=== PATIENT | female | born 1995 | race Caucasian/White ===

== ENCOUNTER 2018-06-13 19:48 | Inpatient (IN) ==
[2018-06-13] MEDS ORDERED: TYLENOL PO ONE (20:10)
[2018-06-13] MEDS ORDERED: MOTRIN PO ONE (20:10)
[2018-06-13 20:16] LABS: BASO# 0.03 X1000 (0.0-0.2); BASO% 0.4 % (0.0-0.8); EOS# 0.14 X1000 (0.0-0.7); EOS% 1.7 % (0.0-10.0); HEMATOCRIT 38.4 % (37.0-47.0); HEMOGLOBIN 13.3 g/dL (12.0-16.0); IMM GRAN# 0.02 X1000 (0.0-0.04); IMM GRAN% 0.2 % (0.0-0.5); LYMPH# 0.44 X1000 (1.2-3.4); LYMPH% 5.3 % (20.5-51.1); MCH 30.4 PG (27-31); MCHC 34.6 g/dL (33-37); MCV 87.9 FL (81-99); MONO# 0.45 X1000 (0.11-0.59); MONO% 5.4 % (1.7-9.3); MPV 11.4 FL (7.4-10.4); NEUT# 7.23 X1000 (1.4-6.5); PLT 199 X1000 (130-400); RBC 4.37 XMIL (4.2-5.4); RDW 12.8 % (11.5-14.5); WBC 8.31 X1000 (4.8-10.8)
[2018-06-13 20:35] LABS: BILIRUBIN URINE NEGATIVE (NEGATIVE); BLOOD URINE NEGATIVE (NEGATIVE); CLARITY SL. CLOUDY (CLEAR); COLOR YELLOW; GLUCOSE URINE NEGATIVE (NEGATIVE); INR 1.12; KETONE URINE TRACE mg/dL (NEGATIVE); LEUKOCYTES URINE TRACE (NEGATIVE); NITRITE URINE POSITIVE (NEGATIVE); PROTEIN URINE TRACE mg/dL (NEGATIVE); UROBILINOGEN URINE NORMAL
[2018-06-13 20:36] LABS: PTT 28.6 Seconds (22.3-41.8)
[2018-06-13 20:42] LABS: URINE EPITHELIAL CELLS >10 /HPF (<10)
[2018-06-13 20:43] LABS: URINE BACTERIA 4+ /HFP; URINE CAST NONE SEEN /LPF; URINE CRYSTAL NONE SEEN /HPF; URINE SOURCE CLEAN CATCH; URINE WBC <10 /HPF (<10); URINE YEAST NONE SEEN /HPF
[2018-06-13 20:44] LABS: INFLUENZA A NEGATIVE (NEGATIVE); INFLUENZA B NEGATIVE (NEGATIVE)
[2018-06-13 20:46] LABS: AGAP 16; ALBUMIN 4.7 g/dL (3.5-5.0); ALKALINE PHOSPHATASE 56 U/L (32-104); BUN 8 mg/dL (8-22); CALCIUM 8.8 mg/dL (8.8-10.2); CHLORIDE 100 mmol/L (98-107); CK PROFILE 71 U/L (24-173); COSMO 272; CREATININE 0.7 mg/dL (0.5-0.9); ESTIMATED GFR > 60; GLUCOSE 92 mg/dL (70-104); GOT 12 U/L (10-30); GPT 7 U/L (10-36); POTASSIUM 3.7 mmol/L (3.5-5.1); SODIUM 137 mmol/L (136-145); TCO2 21 mmol/L (25-35)
--- NOTE | 2018-06-13 20:46 | Diag Imaging Result Doc PS360 ---
CHEST-1 VIEW - 06/13/2018 INDICATION: sepsis protocol COMPARISON: 03/17/2018 FINDINGS: The lungs are normally expanded and clear. Heart size and mediastinal contours are normal. No pneumothorax or pleural effusion. IMPRESSION: Negative exam. Electronically signed by Washington Freire 06/13/2018 8:44 PM
[2018-06-13 20:49] LABS: LYMPHS 4 % (21-51); MONO 5 % (1-9); SEGS 91 % (42-75)
[2018-06-13] MEDS ORDERED: ROCEPHIN 2 GM in NS 50 ML IV ONE (20:51)
[2018-06-13] MEDS ORDERED: XYLOCAINE-MPF 1% ONE (20:53)
[2018-06-13] MEDS ORDERED: XYLOCAINE 1% INJ ONE (20:54)
[2018-06-13] MEDS ORDERED: VANCOMYCIN IV PER PHARMACY MISC SCH (21:00)
[2018-06-13] MEDS ORDERED: MORPHINE IV ONE (21:07)
[2018-06-13] MEDS ORDERED: MORPHINE ONE (21:07)
[2018-06-13] MEDS ORDERED: ROCEPHIN ONE (21:28)
[2018-06-13] MEDS ORDERED: NS 100 ML ONE (21:30)
[2018-06-13] MEDS ORDERED: XYLOCAINE-MPF 1% INJ ONE (21:46)
--- NOTE | 2018-06-13 22:08 | PROVIDER DOCUMENTATION ---
This chart was entered by Umm Erwin Scribe, acting as scribe for Gregor Mcgarry MD. HPI-General Adult - General Chief Complaint: Flu Symptoms Stated Complaint: Flu Time Seen by Provider: 06/13/18 20:04 Source: patient Allergies/Adverse Reactions: Patient Allergies Allergy/AdvReac Type Severity Reaction Status Date / Time No Known Allergies Allergy Verified 06/13/18 19:52 Home Medications: Home Medication List Medication Instructions Recorded Confirmed Last Taken Type Metoclopramide [Reglan] 10 mg PO Q6HR PRN #20 tab 05/26/18 Unknown Rx Pnv No.121/Iron/Folic Acid 1 tab PO DAILY 05/26/18 05/26/18 Unknown History [ Multivitamin Tablet] - History of Present Illness -Gen Adult Nature of Presenting Problems: Patient is a 22 year old female who presents to the ED via EMS with multiple complaints. Patient states symptoms of fever, headache, RLQ abdominal pain, cough, neck pain and back pain. Patient states symptoms started yesterday. Patient denies nausea or vomiting. Location of Pain/Injury: reports: neck, abdomen (RLQ), back Pain Radiation: reports: no radiation Quality of Pain: reports: aching Severity: reports: moderate Onset/Duration: reports: 24 hours ago Timing: reports: still present Context/Activities at Onset: reports: light activity Modifying Factors: improves with: nothing Associated Symptoms: reports: cough, fever/chills (fever), headaches Similar Symptoms Previously?: Yes Recently seen or treated by another doctor?: No Review of Systems - Adult - REVIEW OF SYSTEMS - ADULT Constitutional: reports: fever. denies: chills, fatique Eyes: reports: no symptoms reported Ears, Nose, Mouth & Throat: reports: no symptoms reported Cardiovascular: reports: no symptoms reported Respiratory: reports: cough. denies: shortness of breath, wheezing Gastrointestinal: reports: abdominal pain (RLQ). denies: diarrhea, nausea, vomiting Genitourinary: reports: no symptoms reported Musculoskeletal: reports: back pain, neck pain. denies: muscle aches Integumentary: reports: no symptoms reported Neurological: reports: headache/migraines (CARTER). denies: dizziness/vertigo, numbness, seizure, syncope Psychiatric: reports: no symptoms reported Endocrine: reports: no symptoms reported Hematologic/Lymphatic: reports: no symptoms reported Allergic/Immunologic: reports: no symptoms reported All Other Systems: Reviewed and Negative Past History - Adult - PAST MEDICAL HISTORY-ADULT Review of Records: reports: Nursing Assessment Review, Medications Reviewed, Social history reviewed & non-contributory. Major Childhood Illnesses: reports: denies history Cardiovascular: reports: denies history Respiratory: reports: denies history Gastrointestinal: reports: denies history Obstetrical/Gynecological: reports: denies history Genitourinary: reports: denies history Musculoskeletal: reports: denies history Neurological: reports: denies history Psychiatric: reports: denies history Endocrine/Immune: reports: denies history Other Conditions: reports: denies history - PRIOR SURGERIES/PROCEDURES Surgical/Procedure History: reports: , other (DNC 2012; wisdom teeth) - IMMUNIZATION STATUS Childhood Immunizations: See Nurse Assessment Flu Vaccine: See Nurse Assessment - FAMILY HISTORY Family History: reviewed, not pertinent - SOCIAL HISTORY Smoking: denies Substance Use: marijuana Living Situation: family Physical Exam-General - PHYSICAL EXAM-ADULT Initial Vital Signs Reviewed: Yes - CONSTITUTIONAL General Appearance: alert, mild distress, anxious - NECK Neck: non-tender, normal inspection - RESPIRATORY Respiratory: chest non-tender, lungs clear, normal breath sounds - CARDIOVASCULAR Cardiovascular: normal peripheral pulses, tachycardia - GASTROINTESTINAL (ABDOMEN) Abdominal Exam: normal bowel sounds, soft, tenderness (NEGATIVE CVA TENDERNESS) - MUSCULOSKELETAL Back Exam: no CVA tenderness. negative: CVA tenderness - SKIN Integumentary: normal color, normal turgor, warm/dry - NEUROLOGIC Neurologic: grossly normal, other (positive Kernig sign. negative Brudzinski sign.) - PSYCHIATRIC Psych/Mental Status: anxious Progress - PLAN OF CARE/RESULTS Progress/Plan/Lab Results: Vital Signs - 8 hr 06/13/18 19:48 Temperature 103.0 F H Pulse Rate 116 H Respiratory Rate 22 Blood Pressure 113/81 O2 Sat by Pulse Oximetry 98 Orders Category Date Time Status Cardiac Monitoring DIRECTED Care 06/13/18 19:53 Active IV Insertion ORDERED Care 06/13/18 19:53 Completed Notify MD of + Sepsis Screen NOW Care 06/13/18 19:53 Active Notify Physician As Ordered Care 06/13/18 19:53 Active CHEST-1 VIEW [RAD] Stat Exams 06/13/18 19:53 Ordered BLOOD CULTURE [BLDCUL] Stat Lab 06/13/18 19:53 Uncollected CBC WITH DIFF [HEME] Stat Lab 06/13/18 19:53 Uncollected CK PROFILE [SP CHEM] Stat Lab 06/13/18 19:53 Uncollected COMPREHENSIVE METABOLIC PANEL [CHEM] Stat Lab 06/13/18 19:[address] Stat Lab 06/13/18 19:47 Ordered LACTATE, PLASMA [CHEM] Lab 06/13/18 20:00 Uncollected LACTATE, PLASMA [CHEM] Lab 06/13/18 23:00 Uncollected LACTATE, PLASMA [CHEM] Lab 06/14/18 02:00 Uncollected PROTIME WITH INR [COAG] Stat Lab 06/13/18 19:53 Uncollected PTT [COAG] Stat Lab 06/13/18 19:53 Uncollected TROPONIN T Stat Lab 06/13/18 19:[address] W/POSS RFLX CULT [URINALYSIS] Stat Lab 06/13/18 19:53 Uncollected Oxygen Device Stat Oth 06/13/18 19:53 Active 2033 - Patient's family requested to talk to Dr. Mcgarry. Patient's mother wanted to know the risk and benefits of a LP. Dr. Mcgarry explained the risks and benefits to having a LP. Patient asked Dr. Mcgarry if he had killed someone and Dr. Mcgarry replied no. Patient's mother asked if Dr. Mcgarry has had someone while doing a LP and Dr. Mcgarry replied no. Patient states she will do the procedure. 2039 - Patient's mother came to the nurses desk asking to speak to the other fabi crowell. 2042 - Dr. Black consulted with family. Result Diagrams: 06/13/18 19:58 06/13/18 19:58 - REASSESSMENT Reassessment #1 Time Reassessed: 20:31 Status: other (DURING INITIAL EVALUATION, PATIENT WITH SEVERE HEADACHE,) Reassessment #2 Time Reassessed: 21:38 Status: other (LUMBAR PUNCTURE UNSUCCESSFUL; I HAVE SPOKE TO HOSPITALIST HERE WHO WILL TALK TO [facility] AT [facility]; PENDING CALL BACK. I AM STARTING PATIENT EMPERICALLY ON CEFTRIAXONE AND VANCOMYCIN.) Reassessment #3 Time Reassessed: 22:00 Status: other (HOSPITALIST CALLED BACK.; WILL ADMIT HER HERE. HOSPITALIST WOULD LIKE TO START ACYCLOVIR; WHICH I IWILL START. WILL ALSO GET CT HEAD.) - XRAY 1 XRAY Study: Chest Impression: See EMR Report ( CHEST-1 VIEW - 06/13/2018 INDICATION: sepsis protocol COMPARISON: 03/17/2018 FINDINGS: The lungs are normally expanded and clear. Heart size and mediastinal contours are normal. No pneumothorax or pleural effusion. IMPRESSION: Negative exam. Electronically signed by Washington Freire 06/13/2018 8:44 PM 06/13/182043 Interpreting Physician: Washington Freire MD Dictated Date/Time: 06/13/182042 cc: Gregor Mcgarry MD;) Procedures - LUMBAR PUNCTURE Procedure, Risk, Benefits and Alternatives discussed with:: Patient, Parent, Family Members Consent Form Signed?: Yes Time-Out Verification Completed?: Yes Patient Position: Lying in position Insertion Site: Other (both L 3-4 and L 4-5) Site Prep: Betadine Anesthetic: 1%, Lidocaine/Xylocaine Volume of Anesthetic (ml's): 20 Procedure Successful?: No Departure - Departure Date of Disposition Decision: 06/13/18 Time of Disposition Decision: 21:59 DIAGNOSIS: Meningitis, UTI (urinary tract infection), Fever Disposition: ADMITTED INPATIENT 09 Certified Medical Emergency: Emergent Condition: Serious Referrals and Follow-Ups: None,PCP [Primary Care Provider] - - Critical Care Note This patient required my direct & personal management of CC.: No Attestation - Physician/ MANDEEP Attestation Patient care was provided by Advanced Practice Provider:: No The physician spent face to face time with patient:: Yes Advanced Practice Provider documentation review:: Supervising physician onsite and consulted in the evaluation and care of this patient. The physician did have a face to face encounter with the patient. This chart was documented by the indicated scribe, (Umm Erwin Scribe) and accurately reflects the services I performed and decisions made by me, Gregor Mcgarry MD, as attested by the provider's signature.
[2018-06-13] MEDS ORDERED: ZOVIRAX IV SCH (23:00)
[2018-06-13] MEDS ORDERED: NS IV SCH (23:00)
[2018-06-14] MEDS: VANCOMYCIN 1 GM/NS 1 GM/250 ML IVPB IV SCH ×2 (00:16)
[2018-06-14] MEDS ORDERED: NS 1,000 ML ONE (01:02)
[2018-06-14] MEDS ORDERED: NS 1,000 ML IV ONE ×2 (01:03)
[2018-06-14] MEDS ORDERED: BENADRYL IV ONE (01:18)
[2018-06-14] MEDS ORDERED: ZANTAC IV ONE (01:20)
[2018-06-14] MEDS ORDERED: LEVOPHED 8 MG in D5 1/2 NS 250 ML IV SCH (02:00)
[2018-06-14] MEDS ORDERED: MOTRIN PO PRN (03:11)
[2018-06-14 03:39] LABS: UR AMPHETAMINES QUAL NONE DETECTED (NONE DETECT); UR BARBITUATES QUAL NONE DETECTED (NONE DETECT); UR BENZODIAZEPIN QUAL NONE DETECTED (NONE DETECT); UR CANNABINOIDS QUAL PRESUMPTIVE POSITIVE (NONE DETECT); UR COCAINE QUAL NONE DETECTED (NONE DETECT); UR METHADONE QUAL NONE DETECTED (NONE DETECT); UR METHAMPHETAMINE QUAL PRESUMPTIVE POSITIVE (NONE DETECT); UR OPIATES QUAL NONE DETECTED (NONE DETECT); UR OXYCODONE QUAL NONE DETECTED (NONE DETECT); UR PCP QUAL NONE DETECTED (NONE DETECT); UR PROPOXYPHENE QUAL NONE DETECTED (NONE DETECT); UR TCA QUAL NONE DETECTED (NONE DETECT)
[2018-06-14 06:47] LABS: BASO# 0.02 X1000 (0.0-0.2); BASO% 0.4 % (0.0-0.8); EOS# 0.02 X1000 (0.0-0.7); EOS% 0.4 % (0.0-10.0); HEMATOCRIT 36.4 % (37.0-47.0); HEMOGLOBIN 12.1 g/dL (12.0-16.0); IMM GRAN# 0.01 X1000 (0.0-0.04); IMM GRAN% 0.2 % (0.0-0.5); LYMPH# 0.64 X1000 (1.2-3.4); LYMPH% 13.3 % (20.5-51.1); MCH 29.7 PG (27-31); MCHC 33.2 g/dL (33-37); MCV 89.2 FL (81-99); MONO# 0.43 X1000 (0.11-0.59); MONO% 8.9 % (1.7-9.3); MPV 11.7 FL (7.4-10.4); NEUT# 3.69 X1000 (1.4-6.5); NEUT% 76.8 % (42.2-75.2); PLT 179 X1000 (130-400); RBC 4.08 XMIL (4.2-5.4); RDW 12.7 % (11.5-14.5); WBC 4.81 X1000 (4.8-10.8)
[2018-06-14] MEDS ORDERED: ZOVIRAX IV SCH (07:00)
[2018-06-14] MEDS ORDERED: NS IV SCH (07:00)
[2018-06-14 07:10] LABS: AGAP 13; BUN 10 mg/dL (8-22); CALCIUM 7.3 mg/dL (8.8-10.2); CHLORIDE 108 mmol/L (98-107); COSMO 283; CREATININE 0.9 mg/dL (0.5-0.9); ESTIMATED GFR > 60; GLUCOSE 139 mg/dL (70-104); POTASSIUM 3.8 mmol/L (3.5-5.1); SODIUM 141 mmol/L (136-145); TCO2 20 mmol/L (25-35)
--- NOTE | 2018-06-14 07:19 | Diag Imaging Result Doc PS360 ---
CT HEAD W/O CONTRAST - 06/13/2018 INDICATION: SEVERE CARTER COMPARISON: 09/08/2010 FINDINGS: The ventricles and sulci are normal in size and contour. No intracranial mass or hemorrhage. The skull is intact. The sinuses mastoids and middle ears are clear. IMPRESSION: Negative exam. This exam was performed using automated exposure control, adjustment of mA or kV according to patient size, and/or use of iterative reconstruction technique Electronically signed by Washington Freire 06/14/2018 7:16 AM
[2018-06-14] MEDS: TYLENOL PO PRN (08:40)
[2018-06-14] MEDS: ROCEPHIN 2 GM in NS 50 ML IV SCH ×2 (09:08→21:07)
[2018-06-14] MEDS: MORPHINE IV PRN ×2 (10:32→21:07)
--- NOTE | 2018-06-14 12:36 | HISTORY AND PHYSICAL ---
ADDENDUM: I saw the patient [id number] and fully agree with the assessment and plan of nurse practitioner, Neida Martinez. This is a 22-year-old female who has been admitted through the emergency room with fever and body aches, along with headache. She did have a CT head that was negative and she was initiated on IV ceftriaxone along with acyclovir for possible meningitis. I believe she does have some urine tract infection since that is nitrite positive and was very cloudy in appearance, or there is a possibility that she might be having some viral syndrome, but nevertheless, we will treat her with IV ceftriaxone and acyclovir until her fever subsides. Her maximum temperature during this hospital stay so far has been 103 degrees Fahrenheit, although this morning her temperature was found to be 100.3 degrees Fahrenheit. She is clinically in stable condition overall and she has been alert and oriented x3. Because she is hemodynamically stable, I am going to transfer her from the intensive care unit to the regular medical/surgical and continue to treat her with current antibiotics. Further recommendations will be as per hospital course. cc: Vu Nelson MD
--- NOTE | 2018-06-14 12:59 | HISTORY AND PHYSICAL ---
PRIMARY CARE PHYSICIAN: None. CHIEF COMPLAINT: Fever, headache, cough, neck and back pain, and vomiting x1 that began yesterday. HISTORY OF PRESENTING ILLNESS: This is a 22-year-old, female who presents to [facility] ER with complaints of fever, headache, neck and back pain, cough, with vomiting, and right lower quadrant abdominal pain that began yesterday and progressively worsened. When she arrived to the emergency room, she had a temperature of 103 degrees. Her urinalysis showed positive nitrites, 4+ bacteria, and a trace of white blood cells. Urine test was negative. Her urine drug screen was presumptive positive for methamphetamines and cannabinoids. Influenza A and B were both negative. Chest x-ray was negative. CT of the head was negative. There was an attempt to do a lumbar puncture x6 times but was unsuccessful, to rule out any meningitis. She was noted to have a drop in her blood pressure that got as low as 70/48 while in the emergency room. She was given normal saline 1000 mL x2 L and was admitted to the intensive care unit for further evaluation and treatment. PAST MEDICAL HISTORY: None. PAST SURGICAL HISTORY: section and D and C in 2012. FAMILY HISTORY: Reviewed and noncontributory. SOCIAL HISTORY: She currently lives with family. Denies any tobacco use or alcohol use. She had a urine drug screen that was presumptive positive for methamphetamines and cannabinoids. ALLERGIES: Vancomycin. HOME MEDICATIONS: Home medications will need to be updated and confirmed by nursing. Then we will review and restart. LABORATORY DATA: White blood cell count of 8.31, hemoglobin 13.3, hematocrit 38.4, platelets 199,000. A PT and INR of 15 and 1.12. Sodium 137, potassium 3.7, chloride 100, CO2 21, BUN of 8, creatinine 0.7, glucose 92. Cardiac enzyme was negative. Plasma lactate of 0.9. Urinalysis showed positive nitrites, trace white blood cells, 4+ bacteria. Urine test was negative. Urine drug screen shows presumptive positive for methamphetamines and cannabinoids. Influenza A and B were both negative. Chest x-ray showed a negative exam. CT of the head showed a negative exam. REVIEW OF SYSTEMS: She was positive for subjective fever, headache, neck pain, back pain that was generalized throughout, cough, nausea, vomiting x1 yesterday, right lower quadrant abdominal pain. Denied any burning or hurting with urination. PHYSICAL EXAMINATION: VITAL SIGNS: When she arrived, she had a temperature of 103 degrees, pulse 116, respirations 22, blood pressure 113/81, saturating 98% on room air. Again, her blood pressure dropped in the ER down to 70/48. She is currently at 95/59. GENERAL: This is a 22-year-old, female who is lying in the bed and answers questions appropriately. HEENT: Normocephalic, atraumatic. Normal ENT inspection. Oropharynx and nares are clear. NECK: Normal range of motion. Normal inspection. She did have some pain when her neck was moved with her chin to her chest but stated it was because she had a headache. LUNGS: Clear to auscultation bilaterally with equal lung expansion and chest wall movement. HEART: With regular rate and rhythm. No murmurs, rubs, or gallops. ABDOMEN: Soft, nontender, nondistended. Bowel sounds are present x4 quadrants. MUSCULOSKELETAL: She has 5/5 strength x4 extremities. NEUROLOGICAL: The cranial nerves 2-12 are grossly intact. She does have tenderness to her spine from where they tried to do her lumbar puncture x6 different attempts but were unsuccessful. ASSESSMENT: 1. Sepsis. 2. Hypotension. 3. Urinary tract infection. 4. Rule out meningitis. PLAN: She was initially admitted to the intensive care unit. Placed on O2 per protocol. Regular diet. Blood cultures x2 are pending. Urine culture is pending. She was placed on acyclovir 590 mg IV every 8, Motrin 600 mg p.o. q.6 hours p.r.n. She was initially placed on Levophed per protocol but has been weaned off of that. We will place her on normal saline at 125 mL an hour, Rocephin 1 gram IV q.24, Zofran 4 mg IV q.4 hours p.r.n. We will recheck a CBC and BMP in the a.m. The patient has also been seen by attending already and feels that she can safely be transferred out to the medical floor. Dictated by AGNES Nesbitt for Vu Nelson MD cc: AGNES Nesbitt MD
[2018-06-14] MEDS: NS IV SCH ×2 (15:58→23:04)
[2018-06-14] MEDS: ZOVIRAX IV SCH ×2 (15:58→23:04)
[2018-06-14] MEDS: NS 1,000 ML IV SCH (16:03)
[2018-06-14] MEDS ORDERED: G.I. COCKTAIL PO ONE (16:16)
[2018-06-14] MEDS ORDERED: VANCOMYCIN 1,450 MG in NS 250 ML IV SCH (17:00)
--- NOTE | 2018-06-14 17:18 | EKG Report ---
Test Performed on : 06/14/2018 4:21:27 PM Test Reason : verify rythem Blood Pressure : / mmHG Vent. Rate : 074 BPM Atrial Rate : 074 BPM P-R Int : 130 ms QRS Dur : 086 ms QT Int : 388 ms P-R-T Axes : 029 067 055 degrees QTc Int : 430 ms Normal sinus rhythm. Nonspecific T wave abnormality Abnormal ECG When compared with ECG of 26-MAY-2018 10:26, (Unconfirmed) ST no longer elevated in Inferior leads Nonspecific T wave abnormality, worse in Anterior leads Unconfirmed Result
[2018-06-14] MEDS: TAMIFLU PO SCH (21:06)
[2018-06-14] MEDS: ZOFRAN IV PRN (21:13)
[2018-06-15] MEDS: MORPHINE IV PRN ×4 (00:04→18:55)
[2018-06-15] MEDS: TYLENOL PO PRN ×2 (00:45→21:01)
[2018-06-15] MEDS: NS 1,000 ML IV SCH ×4 (00:45→21:36)
[2018-06-15 06:42] LABS: BASO# 0.01 X1000 (0.0-0.2); BASO% 0.3 % (0.0-0.8); HEMATOCRIT 36.8 % (37.0-47.0); HEMOGLOBIN 12.5 g/dL (12.0-16.0); IMM GRAN# 0.01 X1000 (0.0-0.04); IMM GRAN% 0.3 % (0.0-0.5); LYMPH# 0.93 X1000 (1.2-3.4); MCH 30.2 PG (27-31); MCV 88.9 FL (81-99); MONO# 0.18 X1000 (0.11-0.59); MONO% 5.6 % (1.7-9.3); MPV 11.9 FL (7.4-10.4); NEUT# 2.08 X1000 (1.4-6.5); NEUT% 64.8 % (42.2-75.2); PLT 147 X1000 (130-400); RBC 4.14 XMIL (4.2-5.4); RDW 12.8 % (11.5-14.5); WBC 3.21 X1000 (4.8-10.8)
[2018-06-15 06:57] LABS: AGAP 13; BUN 3 mg/dL (8-22); CALCIUM 7.5 mg/dL (8.8-10.2); CHLORIDE 102 mmol/L (98-107); COSMO 272; CREATININE 0.8 mg/dL (0.5-0.9); ESTIMATED GFR > 60; GLUCOSE 86 mg/dL (70-104); POTASSIUM 3.8 mmol/L (3.5-5.1); SODIUM 138 mmol/L (136-145); TCO2 23 mmol/L (25-35)
[2018-06-15] MEDS: ZOVIRAX IV SCH ×2 (10:14→15:51)
[2018-06-15] MEDS: NS IV SCH ×2 (10:14→15:51)
[2018-06-15] MEDS: TAMIFLU PO SCH ×2 (10:14→21:02)
[2018-06-15] MEDS: ROCEPHIN 2 GM in NS 50 ML IV SCH ×2 (10:17→21:36)
--- NOTE | 2018-06-15 12:19 | Diag Imaging Result Doc PS360 ---
MRI BRAIN W/WO CONTRAST - 06/15/2018 INDICATION: Headache, ? encephalitis/meningitis COMPARISON: Head CT 06/13/2018 FINDINGS: There is no area of restricted diffusion. The ventricles and sulci are normal in size and contour. No intracranial mass or hemorrhage. No area of abnormal contrast enhancement. Midline structures including the optic chiasm and pituitary are normal. IMPRESSION: Negative exam. Electronically signed by Washington Freire 06/15/2018 12:17 PM
--- NOTE | 2018-06-15 15:42 | PROGRESS NOTE ---
DATE: 06/15/2018 SUBJECTIVE: The patient states that she has a severe headache and severe back pain. Initially states that diabetes started after her spinal tap yesterday. However, she also notes that she had a headache and back pain prior to coming to the ER. She notes that she is still nauseated. She is still very weak. Still having fevers. Denies any emesis currently. States her daughter does have the flu. PHYSICAL: Her T-max 102 degrees, T-current 99.5, pulse 78 respiratory pulse 88/49.General: Patient is awake, alert. She is in no current respiratory distress. She appears quite calm. She does not currently appear to be in any outward pain although states that her headache and back are severe. As noted on HPI her urine drug screen was positive for methamphetamines and cannabinoids, although patient states she is not used anything but marijuana a few weeks ago. HEENT: Normocephalic. Neck: Supple. CARDIOVASCULAR: Regular rate. Chest: Chest clear, nonlabored. Abdomen: Soft nondistended. Neurologic: No focal neurological changes she is awake, alert, oriented. The patient states that she has confusion over the event leading to the hospital. Notes that she does not remember coming to the hospital, but since then has had no neurologic issues. ASSESSMENT: 1. Febrile illness of undetermined origin. Certainly likely secondary to urinary tract infection. 2. Back pain, probably due to her infection but also due to the spinal tap. 3. Headache. 4. Hypotension. 5. Febrile illness. PLAN: We will continue patient in the hospital. We will continue treatment of her febrile illness with Zovirax, Tamiflu and Rocephin. We will check an MRI today. She certainly does not appear to have meningitis as she is clearly moving her neck side to side and sits up in the bed. We will continue to follow and further orders after the MRI. cc: Charles Walsh MD [facility]
[2018-06-15] MEDS: ZOFRAN IV PRN (21:01)
[2018-06-16] MEDS: NS 1,000 ML IV SCH ×3 (05:11→18:41)
[2018-06-16] MEDS: MORPHINE IV PRN ×4 (06:26→22:01)
[2018-06-16 06:56] LABS: BASO# 0.01 X1000 (0.0-0.2); BASO% 0.4 % (0.0-0.8); EOS# 0.04 X1000 (0.0-0.7); EOS% 1.7 % (0.0-10.0); HEMATOCRIT 35.3 % (37.0-47.0); HEMOGLOBIN 11.7 g/dL (12.0-16.0); LYMPH# 1.66 X1000 (1.2-3.4); LYMPH% 70.9 % (20.5-51.1); MCH 29.4 PG (27-31); MCHC 33.1 g/dL (33-37); MCV 88.7 FL (81-99); MONO# 0.27 X1000 (0.11-0.59); MONO% 11.5 % (1.7-9.3); NEUT# 0.36 X1000 (1.4-6.5); NEUT% 15.5 % (42.2-75.2); PLT 126 X1000 (130-400); RBC 3.98 XMIL (4.2-5.4); RDW 12.6 % (11.5-14.5); WBC 2.34 X1000 (4.8-10.8)
[2018-06-16 07:18] LABS: AGAP 11; ALBUMIN 3.7 g/dL (3.5-5.0); ALKALINE PHOSPHATASE 37 U/L (32-104); BUN 3 mg/dL (8-22); CALCIUM 7.9 mg/dL (8.8-10.2); CHLORIDE 105 mmol/L (98-107); COSMO 279; CREATININE 0.7 mg/dL (0.5-0.9); ESTIMATED GFR > 60; GLUCOSE 85 mg/dL (70-104); GOT 17 U/L (10-30); GPT 8 U/L (10-36); POTASSIUM 3.8 mmol/L (3.5-5.1); SODIUM 142 mmol/L (136-145); TCO2 27 mmol/L (25-35); TOTAL BILIRUBIN < 0.15 mg/dL (0.20-1.00); TOTAL PROTEIN 5.6 g/dL (6.3-8.3)
[2018-06-16] MEDS: TAMIFLU PO SCH (08:28)
[2018-06-16] MEDS: ROCEPHIN 2 GM in NS 50 ML IV SCH ×2 (08:28→08:37)
[2018-06-16] MEDS: ZOFRAN IV PRN ×3 (09:49→20:37)
[2018-06-16] MEDS: ZOVIRAX IV SCH ×5 (09:49→19:29)
[2018-06-16] MEDS: NS IV SCH ×5 (09:49→19:29)
[2018-06-16 11:41] LABS: INR 0.97; PROTIME 13.4 Seconds (11.0-16.0)
[2018-06-16] MEDS ORDERED: NORCO-5 PO PRN (13:08)
[2018-06-16] MEDS ORDERED: NS 250 ML ONE (14:35)
[2018-06-16] MEDS ORDERED: MOTRIN PO PRN (17:37)
[2018-06-16] MEDS ORDERED: TYLENOL PO PRN (17:39)
[2018-06-16] MEDS ORDERED: ROCEPHIN 2 GM in NS 50 ML IV SCH (20:00)
[2018-06-16] MEDS: NORCO-5 PO PRN (20:33)
[2018-06-16] MEDS ORDERED: TAMIFLU PO SCH (21:00)
--- NOTE | 2018-06-16 22:35 | PROGRESS NOTE ---
DATE: 06/16/2018 SUBJECTIVE: The patient notes that she feels a lot better this morning. Denies any current fevers. She states her headache is improved, her back pain is improved. The rash on her face is improved. She notes that she chronically has a rash on her face, but the redness has improved. Denies any confusion or disorientation. Denies any current cough or GI or issues. OBJECTIVE: Temperature 97.3 degrees, pulse 46, respiratory 18, BP 110/50. General: The patient is awake, alert. She is in no current distress. Appears to be feeling better. HEENT: Normocephalic. Neck supple. CV: Regular rate. Chest clear and nonlabored. No crackles, no wheezing. Abdomen soft, nondistended. Extremities: Moves all extremities. Skin: Her malar- appearing rash on her face is improved. ASSESSMENT: 1. Sepsis, appears resolved. 2. Escherichia coli urinary tract infection. 3. Hypotension, resolved. 4. Leukopenia, with absolute neutrophil count 0.36. 5. Urinary tract infection. 6. Headache, improved. PLAN: We will continue the patient in the hospital. Continue antibiotics. We will transfer her to [facility] for Infectious Disease. We will follow. cc: Charles Walsh MD
[2018-06-17] MEDS: NS IV SCH (03:42)
[2018-06-17] MEDS: ZOVIRAX IV SCH (03:42)
[2018-06-17] MEDS: MORPHINE IV PRN ×2 (03:51→08:20)
[2018-06-17] MEDS: NS 1,000 ML IV SCH ×3 (07:50→17:54)
[2018-06-17] MEDS: ZOFRAN IV PRN ×3 (08:20→22:51)
--- NOTE | 2018-06-17 09:16 | INFECTIOUS DISEASE CONSULT REP ---
DATE: 06/17/2018 CONCLUSION: The patient came in with a febrile illness and told me she was complaining of abdominal and back pain. She does have an E coli urinary tract infection and this could have been the cause of those symptoms. When the patient 1st came in, she did not have any appetite. Patient said that her hands were numb during the present illness. Her negative chest x-ray would make pneumonia unlikely. At one time, the patient was thought to have meningitis, but unfortunately, multiple attempts at a spinal tap were unsuccessful and so no cerebrospinal fluid was obtained. This morning the patient looks completely normal and I doubt that she had meningitis because I do not think she would get over it that quickly. The patient tells me that she has been told she has systemic lupus, which may have caused some of the patient's complaints when she came in the hospital. The patient had a drug screen done which was positive for amphetamines and marijuana. The patient's swab for influenza was negative thus making influenza unlikely. RECOMMENDATIONS: I have started the patient on Keflex for her E. coli urinary tract infection. I stopped the current antimicrobial agents consisting of Rocephin, Tamiflu and acyclovir. Also, I put in a consult for Dr. Peterson to see the patient regarding systemic lupus. I have ordered a renal ultrasound to check for an abscess or any obstruction in the urinary tract. Also, I have requested that the postvoid residual urine be measured. I ordered an RAMAN and sed rate. PAST MEDICAL HISTORY/REVIEW OF SYSTEMS: Eyes and ears: The patient does not have any trouble hearing or seeing. Respiratory: No cough or shortness of breath. Cardiac: No chest pain or palpitations. GI: No nausea, vomiting, or diarrhea. The patient said when she came in that she did not have any appetite. Genitourinary: The patient did have back pain. She did not complain of dysuria. Integument: Patient states that for 4 years, she has an erythematous rash which comes and goes on her face. Bones, joints, Musculoskeletal: There were no swollen joints or muscle aching. Neurologic: The patient does not have any seizures. She has not recently lost any motor or sensory function. ASSISTANT MANAGER PT HISTORY: Patient is a 4 para 2 AB 2. She had a miscarriage 2 weeks ago. PREVIOUS HOSPITALIZATIONS AND OPERATIONS: Patient has had 2 labor and deliveries and 2 miscarriages. MEDICAL DISEASES: The patient at one time was told she had systemic lupus. She also at one time was told she had hypertension, but now she does not have that problem. INFECTIOUS DISEASE HISTORY: Positive for urinary tract infection, negative for pneumonia. FAMILY HISTORY: Positive for diabetes mellitus, Crohn's disease, cancer, COPD, myocardial infarction and stroke. [place]IAL HISTORY[place] her boyfriend. They have cats and dogs for pets. The patient is unemployed. She does smoke cigarettes and occasionally drinks alcohol and also uses marijuana. It should be noted that in her drug screen, amphetamines also were found. LABORATORY AND X-RAY: The patient's CBC shows a white count of 2340, hemoglobin 11.7, and platelet count 126,000. Absolute neutrophil count was 360. Creatinine is 0.7. GFR is greater than 60. Liver function studies are normal. Blood cultures are negative. Urine culture grew E. coli. Swab for influenza was negative also. CT and MRI of the brain showed no abnormality. Chest x-ray showed clear lung pope. Swab for influenza was negative. HEIGHT/WEIGHT: Patient is 5 feet 1 inch tall, weighs 120 pounds. PHYSICAL EXAMINATION: Vital Signs: Temperature is 97.6 degrees, pulse 61, respirations 16, blood pressure 89/55. General: She looks to be healthy young female except for the rash on her face. She is in no acute distress. Head/eyes/ears/nose/throat: She can hear my spoken words and see near objects. She does have an erythematous raised rash on her face. There is no drainage from the nose or ears. She does have some white coating of her tongue posteriorly, but the patient says it does not bother her. Lungs: Clear to auscultation. Cardiovascular: Regular heart rate. Abdomen: Soft and nontender. Neurologic: The patient is alert. She can move her extremities. There is no tremor. Integument: The patient had a fairly diffuse raised erythematous rash on her face. Thank you for the consult. cc: José Miguel Yanez MD [facility]
[2018-06-17] MEDS: KEFLEX PO SCH ×2 (11:41→20:24)
--- NOTE | 2018-06-17 11:41 | PROGRESS NOTE ---
DATE: 06/17/2018 SUBJECTIVE: This patient is resting in bed. She is complaining of back pain. As per the patient the pain is due to the multiple attempts for a lumbar puncture. I examined the area and I did not see any signs of infection or swelling. She has been having borderline low blood pressure, inclusive the systolic blood pressure has been in the 80's. I will stop the morphine. I will continue with IV fluids and p.o. treatment for his her pain. As per the patient when everything coming started she noticed also some kind of rash on her chest and bilateral knee swelling. She has been having a face rash apparently since 2016. but she has never been workup. As per the , she was having some mental status changes and this is why they decided to call an ambulance. Rheumatology Department has been consulted. Also, we have requested an RAMAN and sedimentation rate. C3-C4, I believe the possibility of lupus erythematosus is high. OBJECTIVE: Vital Signs: Temperature 97.7 degrees, pulse 60, respiratory rate 16, blood pressure 93/60, oxygen saturation 100% on room air. HEENT: Head normocephalic. No trauma. PERRLA. She does have a rash at the level of her cheeks and forehead. Chronic. signs of infection. Neck: Supple. No JVD. Central trachea. Chest: Clear to auscultation. No wheezing. No rales. Cardiovascular: Regular rate and rhythm. Abdomen: Soft, nontender, nondistended. No hepatosplenomegaly. Extremities: No edema. No clubbing. No cyanosis. Neurological: At this moment this patient is alert and oriented x3. No focal deficits. LABORATORY: WBC 2.3, hemoglobin 11.7, hematocrit 35.3, platelets 126,000. Sodium 142, potassium 3.8, chloride 105, bicarbonate 27, BUN 3, creatinine 0.7 glucose 85, calcium 7.9. AST 17, ALT 8, alkaline phosphatase 37. ASSESSMENT AND PLAN,: 1. Sepsis. This patient came in tachycardic and with fever. Urine culture showed. Extended Spectrum Beta Lactamase negative. Infectious Disease Department following this patient. 2. Facial rash. As per the patient, the day before admission she started having some rash on his on her chest and also bilateral knee swelling. She has been having this rash on her face since 2016 but she never worked this work these up. We have been requested an evaluation by Rheumatology department to rule out lupus. In the meantime, we will continue with supportive care. We requested C3-C4, RAMAN and sedimentation rate. I will let Rheumatology Department to ask for more blood work. 3. Hypotension. This patient has been getting pain medication/morphine frequently. I will stop it. I will continue with antibiotics and I will her pain by mouth. 4. Leukopenia. We will monitor for now. Probably this is related to the infectious process/sepsis and/or medication induced or immune is a possibility as well. 5. Headache and back pain. Continue with pain medication. 6. She has a positive result that showed cannabinoids and methamphetamine. She will be having daily cessation education. 7. Tobacco abuse. As per the patient, she is willing to stop smoking. I will continue with daily cessation education. She has been highly advised against tobacco use. cc: Dago Pereyra MD
--- NOTE | 2018-06-17 11:48 | CONSULTATION ---
DATE OF CONSULTATION: 06/17/2018 HISTORY OF PRESENT ILLNESS: Ms. Finn is has 22 years old and she has chief complaint of headache. She reports a background history of episodic headache. Headaches are typically intense, global, pounding and throbbing, lasting part of a day or a day, occurring twice a week, associated with photophobia, phonophobia, nausea and no vomiting. In between these more intense headaches, she has an occasional milder headache which is mostly frontal, dull, aching without associated features, lasting a few hours. Headaches began in early adulthood. She believes that she never had significant headache prior to concussion at age 17. She has not had recent head injury. There is no history of stroke. She reports being told "seizure" was the explanation for a few recent episodes of altered awareness with inconsistent features. There is no previous seizure history. She presented several days ago with worse than usual headache, global head pain, features similar to what she has experienced with migraine in the past. Brain MRI with and without contrast 06/15/[address] 06/13/2018 was also unremarkable. Lumbar puncture was attempted on presentation but reported unsuccessful. Later, she reported headache with postural features, headache improved with recumbency, worse sitting up and standing, and then improved again quickly with recumbency. Overall, headache has continued to improve day by day and is much less prominent now than on presentation. Lab work shows WBC initially 8000, then 2340. Urinalysis showed 4+ bacteriuria and trace pyuria. Urine drug screen was positive for methamphetamine and cannabis. She had a fever 103.0 on 06/13/2018, 102.7 on 06/15/2018 at midnight and temperature recorded 100.0 in the afternoon 06/15/2018, afebrile since then. Prior to onset of recent headache, she used Midol for abortive management of headache with benefit. She had used acetaminophen occasionally and thought it was less effective than Midol. She reports having prescription medicine for headache in the remote past and no recent prescription medicine for headache. She does not recall taking medicine daily for headache prophylaxis. Caffeine intake is variable, a Dr. Pepper some days and no caffeine some days. She denies having other caffeinated soft drinks, coffee, tea, other caffeinated beverages, energy drinks. She has had some back pain. She does not report radicular features. She reports occasional numbness involving all limbs simultaneously without definite motor deficit. She martínez not report incontinence. Back pain has been improved in recent days. I do not see spine imaging this admission. PHYSICAL EXAMINATION: On exam, Ms. Finn is awake, alert, attentive, appropriate. She is completely oriented. Speech is not dysarthric. Language function is intact. Memory of recent and remote events is good. Head and neck are unremarkable. There is no meningismus. Straight leg raising is negative bilaterally. Hands and feet are warm. She has rash on the face. Facial appearance is otherwise unremarkable. Facial motility is normal and symmetric. Gag is intact. Tongue is midline. Hearing is good. Visual pope are full tested by confrontational finger counting. Extraocular movements are full. Pupils react to light bilaterally. Facial sensation is intact. Shoulder shrug is equal. Strength is normal in the arms and legs. Tone is symmetric in the limbs. She did well on [id number] testing bilaterally. She reports equal pinprick and light touch appreciation over the limbs. Proprioception is normal at the left great toe and her responses on proprioception testing are inconsistent on the right in a pattern that does not indicate loss of proprioception. Reflexes are 2+ at the ankles and at the wrists symmetrically. Plantar response is flexor bilaterally. I did not test her gait. IMPRESSION: 1. Headache. She has a past history of episodic headache typical of migraine with usual family history noted (she reports headache in her brother and mother). Recent headache had typical migraine features, but was more intense and more protracted. Some of the recent headache had postural features following attempted lumbar puncture suggesting there may have been spinal puncture. All of that is much improved now. I do not see clinical evidence of increased intracranial pressure. Negative imaging is reassuring. Since she has improved with current management, I do not think we have to do anything urgently about the headache. I told her that I am optimistic headache will continue to improve and will resolve. We briefly discussed available management options for frequent headache and those can be considered later as an outpatient, if she is willing. We discussed potential role for caffeine with headache and I encouraged her to be careful with caffeine 2. Back pain without radicular features, no neurologic findings or deficit. 3. She reports a few episodes with question of seizure. History is inconclusive or inconsistent. My first thought is these would be related to substance use and probably not seizure. We could plan EEG electively. I would not treat her with medicine specifically for seizure control at this point. 4. Likely substance use. I do not have any urgent suggestion from neurology standpoint. I will be glad to see her as an outpatient. Thanks for asking Neurology to see Ms. Finn. cc: Korey Negron III, MD MTDD
[2018-06-17 11:52] LABS: BASO# 0.01 X1000 (0.0-0.2); BASO% 0.3 % (0.0-0.8); EOS# 0.12 X1000 (0.0-0.7); EOS% 4.1 % (0.0-10.0); HEMOGLOBIN 12.1 g/dL (12.0-16.0); LYMPH# 1.47 X1000 (1.2-3.4); LYMPH% 49.8 % (20.5-51.1); MCHC 33.6 g/dL (33-37); MCV 89.1 FL (81-99); MONO# 0.24 X1000 (0.11-0.59); MONO% 8.1 % (1.7-9.3); MPV 11.9 FL (7.4-10.4); NEUT# 1.11 X1000 (1.4-6.5); NEUT% 37.7 % (42.2-75.2); PLT 119 X1000 (130-400); RBC 4.04 XMIL (4.2-5.4); RDW 12.5 % (11.5-14.5); WBC 2.95 X1000 (4.8-10.8)
[2018-06-17 12:07] LABS: AGAP 11; ALB/GLOB RATIO 1.8; ALBUMIN 3.9 g/dL (3.5-5.0); ALKALINE PHOSPHATASE 37 U/L (32-104); BUN 4 mg/dL (8-22); CALCIUM 8.2 mg/dL (8.8-10.2); CHLORIDE 106 mmol/L (98-107); COSMO 280; CREATININE 0.5 mg/dL (0.5-0.9); ESTIMATED GFR > 60; GLUCOSE 90 mg/dL (70-104); GOT 17 U/L (10-30); GPT 8 U/L (10-36); POTASSIUM 3.5 mmol/L (3.5-5.1); SODIUM 142 mmol/L (136-145); TCO2 25 mmol/L (25-35); TOTAL BILIRUBIN < 0.15 mg/dL (0.20-1.00); TOTAL PROTEIN 6.1 g/dL (6.3-8.3)
--- NOTE | 2018-06-17 13:26 | EKG Report ---
Test Performed on : 06/17/2018 09:38:21 AM Test Reason : CP Blood Pressure : / mmHG Vent. Rate : 057 BPM Atrial Rate : 057 BPM P-R Int : 166 ms QRS Dur : 104 ms QT Int : 462 ms P-R-T Axes : 026 064 050 degrees QTc Int : 449 ms Sinus bradycardia. Otherwise normal ECG When compared with ECG of 14-JUN-2018 16:21, (Unconfirmed) Nonspecific T wave abnormality no longer evident in Anterior leads Unconfirmed Result
--- NOTE | 2018-06-17 14:28 | Diag Imaging Result Doc PS360 ---
EXAM: US RENAL 2 (RETROPER) COMPLETE 06/17/2018 HISTORY: UTI, MEASURE PRE AND POST VOID TECHNIQUE: Renal ultrasound COMMENT: The renal cortices are slightly hyperechoic. There is slight caliectasis in the left collecting system particularly in the upper pole with prominence of the renal pelvis. The upper ureter is also somewhat distended at 6 mm. The right kidney is 10.8 x 5.7 x 4.5 cm the left is 11.4 x 4.7 x 5.1 cm. The resistive index on the left is 0.74 which is above the normal range the bladder is not particularly distended and has a prevoid volume of 72.8 mL and postvoid volume of 0.9 mL. IMPRESSION: The possibility of medical renal disease cannot be excluded. Mild hydronephrosis on the left. No significant post void urinary volume in the bladder. Electronically signed by Nolberto Hubbard 06/17/2018 2:26 PM
[2018-06-17] MEDS: NORCO-5 PO PRN ×2 (14:32→20:23)
[2018-06-17] MEDS: LIDODERM TOP SCH (14:34)
[2018-06-18] MEDS: KEFLEX PO SCH ×3 (04:01→20:47)
[2018-06-18] MEDS: NORCO-5 PO PRN ×3 (04:02→20:47)
[2018-06-18] MEDS: NS 1,000 ML IV SCH ×3 (04:04→21:05)
[2018-06-18 07:20] LABS: BASO# 0.02 X1000 (0.0-0.2); BASO% 0.6 % (0.0-0.8); EOS# 0.19 X1000 (0.0-0.7); EOS% 5.9 % (0.0-10.0); LYMPH# 1.76 X1000 (1.2-3.4); LYMPH% 54.7 % (20.5-51.1); MCH 29.9 PG (27-31); MCHC 33.3 g/dL (33-37); MCV 89.8 FL (81-99); MONO# 0.23 X1000 (0.11-0.59); MONO% 7.1 % (1.7-9.3); MPV 12.3 FL (7.4-10.4); NEUT# 1.02 X1000 (1.4-6.5); NEUT% 31.7 % (42.2-75.2); PLT 112 X1000 (130-400); RBC 4.01 XMIL (4.2-5.4); RDW 12.5 % (11.5-14.5); WBC 3.22 X1000 (4.8-10.8)
[2018-06-18 07:38] LABS: AGAP 11; ALB/GLOB RATIO 1.6; ALBUMIN 3.5 g/dL (3.5-5.0); ALKALINE PHOSPHATASE 35 U/L (32-104); BUN 4 mg/dL (8-22); CALCIUM 8.2 mg/dL (8.8-10.2); CHLORIDE 106 mmol/L (98-107); COSMO 279; CREATININE 0.6 mg/dL (0.5-0.9); ESTIMATED GFR > 60; GLUCOSE 75 mg/dL (70-104); GOT 17 U/L (10-30); GPT 8 U/L (10-36); POTASSIUM 3.3 mmol/L (3.5-5.1); SODIUM 142 mmol/L (136-145); TCO2 25 mmol/L (25-35); TOTAL BILIRUBIN 0.19 mg/dL (0.20-1.00); TOTAL PROTEIN 5.7 g/dL (6.3-8.3)
[2018-06-18] MEDS ORDERED: KLOR-CON PO ONE (08:46)
[2018-06-18] MEDS: LIDODERM TOP SCH (09:34)
--- NOTE | 2018-06-18 10:07 | PROGRESS NOTE ---
DATE: 06/18/2018 SUBJECTIVE: Patient is resting in bed. She is not complaining of any specific pain at this moment but every time she moves the back she has back pain. She is not complaining of headache today. Potassium level is low and I will replace it. The patient has been complaining of coughing, not phlegm. I will get an x-ray to rule out the possibility of pneumonia. OBJECTIVE: Vital Signs: Temperature 98.2 degrees, pulse 59, respiratory rate 15, blood pressure 101/61, oxygen saturation 98 on room air. HEENT: Head normocephalic. No trauma. PERRLA. She does have a rash at the level of the cheeks and forehead which is chronic. No signs of infection. Neck: Supple. No JVD. Central trachea. Chest: Clear to auscultation. No wheezing. No rales. Cardiovascular: RRR. Abdomen: Soft, nontender, nondistended. No hepatosplenomegaly. Extremities: No edema. No clubbing. No cyanosis. Neurological: The patient is alert and oriented x3. No focal neurological deficits. LABORATORY: WBC 3.2, hemoglobin 12, hematocrit 36.0, platelets 112,000. Sodium 142, potassium 3.3, chloride 106, bicarbonate 25, BUN 4, creatinine 0.6, glucose 75, calcium 8.2. AST 17, ALT 8, alkaline phosphatase 35, albumin 3.5. ASSESSMENT AND PLAN: 1. Sepsis. This patient came in tachycardic and with fever. Urine culture showed Escherichia coli infection which has been treated. At the beginning she has been treated for the possibility of meningitis but that has been ruled out. Neurology Department and Infectious Disease Department on board. 2. Facial rash. As per the patient, the day before the day before admission, she started having some rash also on her chest and bilateral knee swelling. She has been having these rash on her face since 2016 but she is not following this with a doctor. We have been requested an evaluation by Rheumatology Department to rule out lupus. In the meantime, we will continue with supportive care. 3. Hypotension. I already stopped the morphine. Will continue with oral medication. Her blood pressure has been stable. 4. Leukopenia. We will monitor for now. Probably related to the infectious process, immunological process and/or sepsis, also medication induced. Will monitor. 5. Chronic headache. This patient has been evaluated by Neurology Department. Probably this is related to migraines which apparently runs in the family. She is not complaining of headache at this moment. 6. Back pain. We will continue with the same management. 7. She has a positive urine toxicology that showed cannabinoids and methamphetamine. As per the patient, she has been doing marijuana before just 1 time and she denies methamphetamine use. 8. Tobacco abuse. This patient has been highly advised against tobacco use. I will continue with daily cessation education. 9. Cough. I will ask for an x-ray and monitor. 10. Hypokalemia. I Will replace the potassium. cc: Dago Pereyra MD
--- NOTE | 2018-06-18 10:13 | Diag Imaging Result Doc PS360 ---
CHEST-PORTABLE - 06/18/2018 INDICATION: Cough, SOB COMPARISON: 06/13/2018 FINDINGS: The lungs are normally expanded and clear. Heart size and mediastinal contours are normal. No pneumothorax or pleural effusion. There is a left PICC line in good position with the tip at the upper SVC. IMPRESSION: Negative exam. Electronically signed by Washington Freire 06/18/2018 10:11 AM
[2018-06-18] MEDS: ZOFRAN IV PRN (11:40)
--- NOTE | 2018-06-18 17:24 | INFECTIOUS DISEASE PROGRESS NO ---
DATE: 06/18/2018 PRESENT ILLNESS: The patient has an E. coli urinary tract infection. I think that it involved the patient's kidneys as well as bladder. MEDICATIONS: The patient is on Keflex 500 mg p.o. every 8 hours. PHYSICAL EXAMINATION: Vital Signs: Temperature is 98.2 degrees, pulse 57, respirations 15, blood pressure 105/59. General: This is a healthy-appearing, young female. She is in no acute distress. Head, eyes, ears, nose, and throat: The patient continues to have an erythematous rash on her face. She can hear my spoken words and see near objects. She does not have any white patches on her tongue. Neck: No pain with movement. Lungs: Clear to auscultation. Cardiovascular: Regular heart rate. Abdomen: Soft and nontender. Neurologic: Patient is alert. She can move her extremities. There is no tremor. LAB AND X-RAY: CBC today shows a white count of 3,220, hemoglobin 12, and platelet count 112,000. Creatinine is 0.6. GFR is greater than 60. Liver function studies are normal. The patient's sedimentation rate was 1. ASSESSMENT AND PLAN: The patient has an Escherichia coli urinary tract infection. I have printed up from the computer a prescription for Keflex 500 mg p.o. every 8 hours for 2 weeks and I have requested the patient have an appointment in my office in 3 weeks, at which time she will be examined and urine will be taken for a urinalysis and culture to make sure that the infection has cleared up. Since the patient has been told previously she had lupus, Dr. Peterson will be seeing the patient soon regarding that. Against it being lupus is her sedimentation rates only 1. Also, I did send for an RAMAN, the results of which are not yet back. COMORBIDITIES: If she has lupus that certainly could be a comorbidity. Other than that, I do not see that she has a predisposing factor to get a severe urinary tract infection. cc: José Miguel Yanez MD
[2018-06-19] MEDS: KEFLEX PO SCH (03:17)
[2018-06-19] MEDS: NORCO-5 PO PRN (03:17)
[2018-06-19] MEDS: NS 1,000 ML IV SCH (03:20)
[2018-06-19 08:13] LABS: BASO# 0.01 X1000 (0.0-0.2); BASO% 0.3 % (0.0-0.8); EOS# 0.21 X1000 (0.0-0.7); EOS% 5.5 % (0.0-10.0); HEMATOCRIT 36.3 % (37.0-47.0); HEMOGLOBIN 12.1 g/dL (12.0-16.0); LYMPH# 2.37 X1000 (1.2-3.4); LYMPH% 62.2 % (20.5-51.1); MCHC 33.3 g/dL (33-37); MCV 90.1 FL (81-99); MONO# 0.34 X1000 (0.11-0.59); MONO% 8.9 % (1.7-9.3); MPV 12.2 FL (7.4-10.4); NEUT# 0.88 X1000 (1.4-6.5); NEUT% 23.1 % (42.2-75.2); PLT 119 X1000 (130-400); RBC 4.03 XMIL (4.2-5.4); RDW 12.6 % (11.5-14.5); WBC 3.81 X1000 (4.8-10.8)
[2018-06-19 08:25] LABS: AGAP 9; BUN 5 mg/dL (8-22); CALCIUM 8.1 mg/dL (8.8-10.2); CHLORIDE 106 mmol/L (98-107); COSMO 279; CREATININE 0.6 mg/dL (0.5-0.9); ESTIMATED GFR > 60; GLUCOSE 76 mg/dL (70-104); SODIUM 142 mmol/L (136-145); TCO2 27 mmol/L (25-35)
[2018-06-19 08:27] VITALS: BP 102/72
--- NOTE | 2018-06-20 14:02 | DISCHARGE SUMMARY ---
ADMISSION DATE: 06/13/2018 DISCHARGE DATE: 06/19/2018 ADMISSION DIAGNOSES: 1. Sepsis on presentation. 2. Hypotension. 3. Urinary tract infection. 4. Evaluate for possible meningitis. DISCHARGE DIAGNOSES: 1. Escherichia coli urinary tract infection. 2. Rule out systemic lupus erythematosus. CONSULTATIONS: Dr. José Miguel Yanez with Infectious Disease. Dr. Korey Negron with Neurology. Dr. Peterson with Rheumatology. DIAGNOSTIC PROCEDURES AND FINDINGS: Chest x-ray 06/13/2018: Negative exam. Head CT 06/13/2018: Negative exam. Brain MRI 06/15/2018: Negative exam. Renal ultrasound 06/17/2018: Possibility of medical renal disease cannot be excluded. Mild hydronephrosis on the left. No significant post-void urinary volume in the bladder. Chest x-ray 06/18/2018: Negative exam. EKG 06/18/2018: Sinus bradycardia. No acute ST or T abnormalities. HOSPITAL COURSE: Ms. Finn is a 22-year-old female who came to [facility] with a fever, backache, headache, malaise, and right lower quadrant pain for 48 hours prior to admission. In the E.R. at [facility] she was noted to have a urinary tract infection and was also positive for methamphetamines and cannabinoids. There was a question of meningitis versus encephalitis so she was sent to our facility for further evaluation and consultation with ID and Neurology. Within 48 hours of admission she did improve greatly, however, she did start having a macular rash to both cheeks that was concerning for lupus and indeed she did endorse a history of possible lupus. She was treated for her UTI and had extensive neurologic testing including a CT of the head and an MRI of the brain which were negative for any acute process. She was continued on Rocephin and ultimately deemed not to have any type of neurologic infection. The possibility of lupus has not been ruled out and she will be following up with Dr. Peterson, Rheumatology, on an outpatient basis. She was seen by Infectious Disease and the neurologist who did not have any urgent recommendations. As such, she is stable now for discharge and will be following up with Dr. Peterson as an outpatient. DISCHARGE MEDICATIONS: 1. Keflex 500 mg p.o. every 8 hours. 2. Acetaminophen 650 mg p.o. every 4 hours as needed for fever. DISCHARGE LAB DATA: WBC is 3.81, hemoglobin 12.1, hematocrit 36.3, and platelet count 119. Sodium is 143, potassium 4, chloride 106, CO2 27, anion gap 9, BUN 5, creatinine 0.6, glucose 76, and calcium 8.1. RAMAN is positive. Double-stranded DNA was subsequently less than 200. Complement C3 was 87 and complement C4 20. DISCHARGE DIET: Regular. DISCHARGE ACTIVITY: Resume activity as tolerated. DISPOSITION AND OTHER DISCHARGE INSTRUCTIONS: She is to continue medications as directed. We advised extensively against any use of illicit substances. She is to follow up with Dr. Peterson as directed and return to the E.R. or call 911 for any worsening complaints or concerns. All questions were answered. DISCHARGE TIME: Greater than 35 minutes. Dictated by AGNES Cox for Dago Pereyra MD cc: AGNES Cox MD [facility]
== END 2018-06-19 09:29 | disposition home or self-care (01) | DRG 872 ==
LOC: P.ED 19:48 → P.ICU 19:49 → SUATTDRO 19:49 → P.MEDSURG 06-14 12:10 → 3N 06-16 17:33
PROVIDERS: ATTEND Internal Medicine
CPT/HCPCS: 36415; 36569; 70450; 70553; 71010; 71045; 76770; 80048; 80053; 80104; 80301; 80305; 81001; 81025; 82550; 83516; 83605; 84484; 85025; 85610; 85651; 85730; 86038; 86039; 86160; 86235; 87040; 87077; 87088; 87186; 87275; 87276; 87804; 93005; 93010; 94761; 96361; 96365; 96367; 96375; 99285; A9270; G0431; G0434; G0477; J0133; J0696; J1200; J2270; J2405; J2780; J3370; J7030; J7050; Q9965